=== PATIENT | male | born 1955 | race Caucasian/White ===

== ENCOUNTER 2024-11-21 21:03 | Emergency (ER) | payer MEDICARE ==
[2024-11-21] MEDS: Tetracaine HCl/PF 0.5% 4 ML Bottle EYERT STA (23:21)
[2024-11-22] MEDS: Erythromycin Base 0.5% Ophth Oint 1 GM Tube EYERT ONE (00:15)
[2024-11-22] MEDS: Ibuprofen 600 MG Tab PO ONE (00:15)
== END 2024-11-22 00:39 | disposition home or self-care (01) ==
LOC: MW.ED 21:03
DX: S05.01XA Injury of conjunctiva and corneal abrasion without foreign body, right eye, initial encounter (principal); H57.8A1 Foreign body sensation, right eye; H18.21 Corneal edema secondary to contact lens; X58.XXXA Exposure to other specified factors, initial encounter; Y93.89 Activity, other specified
CPT/HCPCS: 99283; A9270; J3490

== ENCOUNTER 2025-02-17 07:55 | Day surgery (SDC) | payer MEDICARE ==
[~2025-02-17 07:55] MED LIST: propofoL 500 MG/50 ML 50 ML ONE
[2025-02-17] MEDS: Lactated Ringers 1,000 ML IV SCH (08:35)
[2025-02-17] MEDS ORDERED: fentaNYL 100 MCG/2 ML SDV ONE (08:42)
[2025-02-17] MEDS ORDERED: Lidocaine 2% 5 ML SDV ONE (09:31)
== END 2025-02-17 11:15 | disposition home or self-care (01) ==
LOC: MW.SDS 07:55
PROVIDERS: ATTEND Surgery
DX: Z12.11 Encounter for screening for malignant neoplasm of colon (principal); K29.50 Unspecified chronic gastritis without bleeding; K21.00 Gastro-esophageal reflux disease with esophagitis, without bleeding; K44.9 Diaphragmatic hernia without obstruction or gangrene; K57.30 Diverticulosis of large intestine without perforation or abscess without bleeding; K22.89 Other specified disease of esophagus; K63.89 Other specified diseases of intestine; Z91.09 Other allergy status, other than to drugs and biological substances; Z87.891 Personal history of nicotine dependence; Z79.899 Other long term (current) drug therapy; Z80.0 Family history of malignant neoplasm of digestive organs
CPT/HCPCS: 43239; 88305; G0121; J2003; J2704; J3010; J7120; 00813

== ENCOUNTER 2025-08-27 06:28 | Day surgery (SDC) | payer MEDICARE ==
[2025-08-27] MEDS ORDERED: propofoL 1,000 MG/100 ML 100 ML ONE (07:06)
[2025-08-27] MEDS: Lactated Ringers 1,000 ML IV SCH (07:07)
[2025-08-27] MEDS ORDERED: Ondansetron 4 MG/2 ML SDV ONE (07:08)
[2025-08-27] MEDS ORDERED: Dexamethasone 4 MG/ML 5 ML MDV ONE (07:08)
[2025-08-27] MEDS ORDERED: fentaNYL 100 MCG/2 ML SDV ONE (07:08)
[2025-08-27] MEDS ORDERED: Magnesium Sulfate (4.06 MEQ/ML) 5 GM/10 ML SDV ONE (07:08)
[2025-08-27] MEDS ORDERED: Ondansetron 4 MG/2 ML SDV IVPUSH PRN (07:46)
[2025-08-27] MEDS ORDERED: fentaNYL 50 MCG/ML SDV IVPUSH PRN (07:46)
[2025-08-27] MEDS ORDERED: Naloxone 0.4 MG/ML SDV IVPUSH PRN (07:46)
[2025-08-27] MEDS ORDERED: Albuterol 0.083% 2.5 MG/3 ML Neb Soln NEB PRN (07:46)
[2025-08-27] MEDS ORDERED: Ketorolac 30 MG/ML SDV ONE (07:57)
[2025-08-27] MEDS ORDERED: dexmedeTOMIDine HCl 200 MCG/2 ML SDV ONE (08:08)
[2025-08-27] MEDS ORDERED: propofoL 500 MG/50 ML 50 ML ONE (08:41)
[2025-08-27] MEDS ORDERED: ceFAZolin 2 GM in Water For Injection, Sterile 20 ML IVPUSH ONE (16:41)
== END 2025-08-27 10:40 | disposition home or self-care (01) ==
LOC: MW.SDS 06:28
PROVIDERS: ATTEND Surgery
DX: C25.9 Malignant neoplasm of pancreas, unspecified (principal); I10 Essential (primary) hypertension; K21.9 Gastro-esophageal reflux disease without esophagitis; Z91.048 Other nonmedicinal substance allergy status; Z79.899 Other long term (current) drug therapy
CPT/HCPCS: 36561; 71045; 76000; A9270; C1788; J0665; J0690; J1100; J1642; J1885; J2003; J2704; J3010; J3475; J7120; 00532; J2405; J3490